=== PATIENT | male | born 1950 | race Caucasian/White ===

== ENCOUNTER 2017-12-20 13:17 | Day surgery (SDC) | payer MEDICARE, OTHER ==
--- NOTE | 2017-12-20 08:36 | History and Physical - Ferro ---
CHIEF COMPLAINT/HISTORY OF CHIEF COMPLAINT: This patient with an indwelling spinal fusion device infusing Hydromorphone had battery depletion identified on the last refill. She is here for pump battery replacement without primary changes. PAST MEDICAL HISTORY: Sleep apnea, gastrointestinal disease, peptic ulcer disease, and intractable radiculopathy. PAST SURGICAL HISTORY: None given. MEDICATIONS ON ADMISSION: List to be provided. ALLERGIES: LEVAQUIN, VISTARIL, ERYTHROMYCIN, AND CLINDAMYCIN. FAMILY/PSYCHOSOCIAL HISTORY: Social history - Smoking. Family history - Noncontributory. SYSTEMS REVIEW: The patient is appropriate in no acute distress. The remainder of the systems review is positive for hepatitis, reflux, chronic back pain, depression, difficulty sleeping and anxiety disorder. PHYSICAL EXAMINATION: Height is 5'2", weight is 140. No vital signs. HEENT: Within normal limits. LUNGS: Clear. HEART: Regular rate and rhythm. ABDOMEN: Nontender. MUSCULOSKELETAL: Examination of the musculoskeletal system shows the pump in the right posterior gluteal margin. The incisional site is intact. There is no breakdown or cellulitis. Chronic pain pattern is a lower extremity radiculopathy, right greater than left. Sensory field and motor evaluations are intact. NEUROLOGIC: Cranial nerves are intact. IMPRESSION: 1. INTRACTABLE LUMBAR RADICULOPATHY, ICD-10 CODE M54.16 AND M54.17. 2. IMPLANTED SPINAL FUSION SYSTEM HYDROMORPHONE BATTERY DEPLETION. PLAN: The patient will be seen on an outpatient basis for removal and replacement of the battery. Procedure will not change any of her setting or parameters. JOB NUMBER: [id number] [facility]
[~2017-12-20 13:17] MED LIST: ACETAMINOPHEN 1,000 MG/100 ML BTL IV ONE; CEFAZOLIN 2 Gram 2 GM/50 ML BAG IVPB ONE; FAMOTIDINE 20MG TABLET PO ONE; HYDROMORPHONE HCL 0.6 GM in 0.9 % SODIUM CHLORIDE 10ML VIA 20 ML IV ONE; HYDROMORPHONE PF 2MG/ML AMP 0.004 MG in 0.9 % SODIUM CHLORIDE 10ML VIA 0.998 ML IV ONE; MECLIZINE 25 MG TABLET PO ONE; METOCLOPRAMIDE 10 MG TABLET PO ONE
[2017-12-20] MEDS ORDERED: BUPIVACAINE 0.5% W/EPI MPF 30 ML VIAL IVP ONE (13:18)
[2017-12-20] MEDS ORDERED: PROPOFOL 10 MG/ML VIAL IV ONE (13:18)
[2017-12-20] MEDS ORDERED: MIDAZOLAM HCL 2MG/2ML VIAL IV ONE (13:18)
[2017-12-20] MEDS ORDERED: LIDOCAINE 1% MDV (10MG/ML) 20ML VIAL SQ ONE (13:18)
[2017-12-20] MEDS ORDERED: LIDOCAINE 1% W/EPI 1:200,000 MPF 30ML SQ ONE (13:18)
[2017-12-20] MEDS ORDERED: FENTANYL PF 100MCG/2ML VIAL IV ONE (13:18)
--- NOTE | 2017-12-21 20:11 | Operative Note - Ferro ---
DATE OF SURGERY: 12/20/17 PREOPERATIVE DIAGNOSES: 1. INTRACTABLE LUMBAR RADICULOPATHY, ICD-10 CODE = M54.16 AND M54.17. 2. IMPLANTED SPINAL INFUSION SYSTEM HYDROMORPHONE WITH BATTERY DEPLETION. OPERATION: 1. INCISION, SUBCUTANEOUS DISSECTION, AND REMOVAL AND REPLACEMENT OF PROGRAMMABLE PUMP AT RIGHT POSTERIOR GLUTEAL MARGIN 20 ML MEDTRONIC PROGRAMMABLE. 2. PUMP PLACED ONTO THE FIELD, WHICH IS PREFILLED HYDROMORPHONE 30 MG CONCENTRATION INTERFACED TO INDWELLING CATHETER. 3. PUMP PLACED INTO POUCH WITH INTERFACED INDWELLING CATHETER SECURED TO POSTERIOR FASCIA USING NONABSORBABLE SUTURE. 4. CURVED 24-GAUGE VALENCIA NEEDLE TO ACCESS PORT PROGRAMMABLE PUMP ASPIRATE AND CLEARING PUMP AND CATHETER 1 ML OF CATHETER CONTENTS CLEARING CATHETER OF OPIOID AND CSF MIXTURE. 5. DIAGNOSTIC MYELOGRAPHY WITH RADIOLOGIC SUPERVISION AND INTERPRETATION. 6. WITH PUMP INTO POUCH, CLOSURE OF INCISION VICRYL FOR FASCIA, RUNNING SUBCUTICULAR VICRYL FOR SKIN. DERMABOND CLOSURE. 7. PROGRAMMING OF PUMP TO ORIGINAL PARAMETERS TO INITIATE INFUSION OF HYDROMORPHONE. SURGEON: JUANCHO EAGLE D.O. ANESTHESIA: LOCAL SEDATION. ANESTHESIA PROVIDER: EZRA SERRATO CRNA INDICATION: This patient presents with a history of intractable lumbar radiculopathy with a spinal infusion device Hydromorphone. At the last number of refills, reprogrammings, battery depletion was noted. She is here for battery change without parameter change. PROCEDURE: Intravenous line, vital sign monitoring, IV sedation by Anesthesia, Ezra Serrato. Patient position prone. Sterile prep, sterile technique at the right posterior gluteal margin pump pouch site. Under imaging, the pump was identified, the access port at 1 o'clock. Skin infiltrated, incision made, and subcutaneous dissection was conducted to the Dacron sleeve. The Dacron sleeve was opened and the pouch was exteriorized. The connection to the indwelling catheter was then and then a new pump placed onto the field, 20 mL Programmable pre-filled Hydromorphone, 30 mg per mL. The indwelling catheter was interfaced to the new pump, placed into the pouch, secured to the fascia with nonabsorbable suture. A 24-gauge Valencia needle was inserted into the access port of the pump then 1 mL of catheter contents was aspirated clearing the catheter of opioid and CSF mixture. Diagnostic myelography was then performed under radiologic supervision and interpretation. Contrast flow characteristics within the internal pump were appropriate. There were no obstructions or leaks. Catheter tip T12/L1 identified with myelogram flow appropriately noted confirming functionality of the system. With the pump in the pouch, the incision was closed Vicryl for fascia, running subcuticular Vicryl for skin, Dermabond closure approximating the edges of the wound. The pump was then programmed back to its original infusion parameters. She was transported to the Recovery Room stable. No side-effects from the procedure or the sedation. She was monitored until stable then discharged. DISCHARGE INSTRUCTIONS: 1. Sites remain clean and dry. No showering or bathing in any way for the first 24 hours. She may then shower because the Dermabond is impermeable to water but she cannot sit in a tub. 2. Standard medications resumed including Levaquin, the antibiotic, 500 mg once a day for 14 days. 3. Spinal opioid side-effects; respiratory depression, nausea, vomiting, constipation, urinary retention, light headedness or rash have all been discussed and reviewed. All other instructions provided, numbers to contact, problems given. The office will contact her in 24-48 hours to set up an appointment in 5-7 days to evaluate the incisions. All other instructions provided, numbers to contact, problems given, she was then discharged. cc: Dr. Rogers JOB NUMBER: [id number] MTDD
== END 2017-12-20 15:52 | disposition home or self-care (01) ==
LOC: SUR 13:17
PROVIDERS: ATTEND Pain Medicine Interventional Pain Medicine
DX: M54.16 Radiculopathy, lumbar region (principal); M54.17 Radiculopathy, lumbosacral region; I10 Essential (primary) hypertension; E78.00 Pure hypercholesterolemia, unspecified; K21.9 Gastro-esophageal reflux disease without esophagitis
CPT/HCPCS: 62362; 00400; 62368; Q9967; J3010; J0690; J1170